=== PATIENT | female | born 1970 | race Caucasian/White ===

== ENCOUNTER 2023-07-19 22:17 | Emergency (ER) | payer OTHER ==
[~2023-07-19] VITALS: Wt 70.8 kg
[2023-07-19] MEDS ORDERED: HYDROCODONE-AC1 EAC1 PO (23:14)
== END 2023-07-19 23:17 | disposition home or self-care (01) ==
LOC: ED 22:17
DX: S92.352A Displaced fracture of fifth metatarsal bone, left foot, initial encounter for closed fracture (principal); X50.1XXA Overexertion from prolonged static or awkward postures, initial encounter; Y93.89 Activity, other specified; Y92.009 Unspecified place in unspecified non-institutional (private) residence as the place of occurrence of the external cause; Y99.8 Other external cause status

== ENCOUNTER → 2023-08-12 | Outpatient (CLI) | payer OTHER ==
[~2023-08-12] MED LIST: HYDROCODONE-AC1 EAC1 PO
== END | disposition home or self-care (01) ==
LOC: ORTHO 04:00
PROVIDERS: ATTEND Orthopaedic Surgery
DX: S92.352D Displaced fracture of fifth metatarsal bone, left foot, subsequent encounter for fracture with routine healing (principal); M77.32 Calcaneal spur, left foot; M76.62 Achilles tendinitis, left leg; X58.XXXD Exposure to other specified factors, subsequent encounter

== ENCOUNTER → 2023-09-02 | Outpatient (CLI) | payer OTHER | END | disposition home or self-care (01) | LOC: ORTHO 01:38 | PROVIDERS: ATTEND Orthopaedic Surgery | DX: S92.352D Displaced fracture of fifth metatarsal bone, left foot, subsequent encounter for fracture with routine healing (principal); X58.XXXD Exposure to other specified factors, subsequent encounter ==

== ENCOUNTER → 2023-09-13 | Outpatient (CLI) | payer OTHER | END | disposition home or self-care (01) | LOC: RAD 08:00 | PROVIDERS: ATTEND Orthopaedic Surgery | DX: M81.0 Age-related osteoporosis without current pathological fracture (principal) ==